=== PATIENT | female | born 1975 | race Caucasian/White ===

== ENCOUNTER 2020-06-09 07:42 | Day surgery (SDC) | payer OTHER ==
[~2020-06-09] VITALS: Ht 167.6 cm; Wt 97.3 kg
[~2020-06-09 07:42] MED LIST: Advil100 MG PO; BALSALAZIDE DI750 M1 PO; BENADRYL25 MG PO; Balsalazide Di750 MG PO; CEPH500 PO; CYCL10 PO; CYCLOBENZAPRINE5 MG PO; Citalopram HBr10 MG PO; Colace100 MG PO; DIAZ10; DIAZ5 PO; DOCU100 PO; HYDACE10B PO; HYDACE5 PO; HYDR-86 PO; IBUP600 PO; IBUP800 PO; LEVO750 PO; METCAR750 PO; Mobic15 MG PO; NAPR500 PO; Norco 10-325 T1 EACH PO; Norco 5-325 Ta1 EACH PO; ONDA4ODT PO; OXYACE5T PO; OXYB5 PO; PRED10 PO; PROZAC20 MG PO; Pyridium100 MG PO; RIFA300 PO; RXCEPH500 PO; RXHYDACE PO; RXOXYACE PO; RXSULTRIDS PO; SULTRIDS PO; Sprintec1 EACH PO; TRAZ50 PO; VAGIFEM10 MCG
--- NOTE | 2020-06-09 09:03 | NUR ---
06/09/20 0903 Sylvia Bailey PATIENT NOT CLEAN MD WAS ABLE TO REACH THE DESCENDING COLON BEFORE ABORTING PROCEDURE
--- NOTE | 2020-06-09 09:50 | NUR ---
06/09/20 0950 Sylvia Bailey UPON ARRIVAL TO STEP DOWN PATIENT ADMITTED TO PAIN 6/10 THAT WAS CRAMPING IN HER LOWER ABDOMEN. MONITORED THIS THROUGHOUT THE STEPDOWN PROCESS AND PAIN DID SLOWLY DECREASE TO A LEVEL 4/10. SHE STATED SHE HAD BEEN HAVING PAIN PREVIOUS TO EXAM BECAUSE SHE IS IN A FLARE OF HER COLITIS AT THIS TIME. SHE WILL CONTINUE TO MONITOR THE PAIN AND SHE VERBALIZES SHE WILL LET DR PRITCHARD KNOW IF SHE HAS CONTINUED PROBLEM
== END 2020-06-09 09:25 | disposition home or self-care (01) ==
LOC: ORSCSDS 07:42
PROVIDERS: Internal Medicine Gastroenterology
PROC: 0DJD8ZZ Inspection of Lower Intestinal Tract, Via Natural or Artificial Opening Endoscopic (ICD-10-PCS; principal; 2020-06-09 09:00)
DX: K62.5 Hemorrhage of anus and rectum (principal); R10.30 Lower abdominal pain, unspecified; Z79.899 Other long term (current) drug therapy
CPT/HCPCS: J2704; J7120

== ENCOUNTER 2020-06-11 12:09 | Day surgery (SDC) | payer OTHER ==
[~2020-06-11] VITALS: Ht 167.6 cm; Wt 97.5 kg
== END 2020-06-11 14:12 | disposition home or self-care (01) ==
LOC: ORSCSDS 12:09
PROVIDERS: Internal Medicine Gastroenterology
PROC: 0DBP8ZX Excision of Rectum, Via Natural or Artificial Opening Endoscopic, Diagnostic (ICD-10-PCS; principal; 2020-06-11 14:00)
PROC: 0DBE8ZX Excision of Large Intestine, Via Natural or Artificial Opening Endoscopic, Diagnostic (ICD-10-PCS; principal; 2020-06-11 14:00)
DX: K62.5 Hemorrhage of anus and rectum (principal); K51.211 Ulcerative (chronic) proctitis with rectal bleeding; K51.90 Ulcerative colitis, unspecified, without complications; R10.30 Lower abdominal pain, unspecified; I10 Essential (primary) hypertension; F33.9 Major depressive disorder, recurrent, unspecified; Z79.899 Other long term (current) drug therapy; E66.9 Obesity, unspecified; Z68.35 Body mass index [BMI] 35.0-35.9, adult
CPT/HCPCS: 88305; J2704; J7120